=== PATIENT | male | born 2000 | race Hispanic/Latino ===

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

== ENCOUNTER → 2022-09-16 | Emergency (ER) | payer BC ==
[~2022-09-16] VITALS: Ht 167.6 cm; Wt 56.7 kg
[2022-09-16 12:27] VITALS: BP 117/76
== END ==
LOC: EDH 12:26
DX: R11.2 Nausea with vomiting, unspecified (principal); Z20.822 Contact with and (suspected) exposure to COVID-19; Z53.21 Procedure and treatment not carried out due to patient leaving prior to being seen by health care provider
CPT/HCPCS: 87635; 87880; 87804 ×2; C9803; 99281